=== PATIENT | male | born 1985 | race Caucasian/White ===

== ENCOUNTER 2019-08-24 13:56 | Emergency (ER) | payer BC ==
[2019-08-24] MEDS ORDERED: BABY ASPIRIN 81 MG CHEW PO ONE (14:01)
[2019-08-24] MEDS ORDERED: BABY ASPIRIN 81 MG CHEW ONE (14:20)
--- NOTE | 2019-08-24 14:22 | ERPHSYRPT ---
- History of Present Illness Time Seen by Provider: 08/24/19 14:00 Historian: patient Exam Limitations: no limitations Patient Subjective Stated Complaint: chest pain that feels like tightness. "it started while i was walking. Danni been sweating ever since." Triage Nursing Assessment: . Physician History: Patient is a 33-year-old male who presents to our ED with complaints of substernal chest pain and shortness of breath. 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 Chest pain described as an ache that is substernal. No radiation. Pain was associated with diaphoresis. No dizziness or lightheadedness. No nausea or vomiting. Patient has had similar symptoms before. He was diagnosed with anxiety. Patient also has a history of asthma. Patient states symptoms are different from his asthma. He denies wheezing. Patient voices no other complaints at this time. Timing/Duration: today Activities at Onset: activity Quality: aching Location: substernal Chest Pain Radiation: no radiation Severity of Pain-Max: moderate Severity of Pain-Current: mild Modifying Factors: Improves With: nothing Associated Symptoms: denies symptoms, diaphoresis Nitro Today/Relief: no nitro taken today Aspirin Treatment Today: no aspirin today, 325 mg x 1 Allergies/Adverse Reactions: No Known Drug Allergies Allergy (Unverified 08/24/19 14:14) Hx Tetanus, Diphtheria Vaccination/Date Given: Yes Hx Influenza Vaccination/Date Given: Yes Immunizations Up to Date: Yes Travel Risk - International Travel Have you traveled outside of the country in past 3 weeks: No Have you or anyone close to you been diagnosed with or: No Do your reside in a community with a known COVID-19 case?: Yes If Yes where:: [facility] - Coronavirus Screening Has patient experienced Coronavirus symptoms: No - Review of Systems Constitutional: No Symptoms, No Fever, No Chills Eyes: No Symptoms Ears, Nose, & Throat: No Symptoms Respiratory: No Symptoms, No Cough, No Dyspnea Cardiac: No Symptoms, No Chest Pain, No Edema, No Syncope Abdominal/Gastrointestinal: No Symptoms, No Abdominal Pain, No Nausea, No Vomiting, No Diarrhea Genitourinary Symptoms: No Symptoms, No Dysuria Musculoskeletal: No Symptoms, No Back Pain, No Neck Pain Skin: No Symptoms, No Rash Neurological: No Symptoms, No Dizziness, No Focal Weakness, No Sensory Changes Psychological: No Symptoms Endocrine: No Symptoms Hematologic/Lymphatic: No Symptoms All Other Systems: Reviewed and Negative - Social History Smoking Status: Never smoker Exposure to second hand smoke: No Patient Lives Alone: Yes (fiance) - Nursing Vital Signs Nursing Vital Signs: Initial Vital Signs Temperature 98.2 F 08/24/19 13:56 Pulse Rate 83 08/24/19 13:56 Respiratory Rate 22 08/24/19 13:56 Blood Pressure 132/80 08/24/19 13:56 O2 Sat by Pulse Oximetry 95 08/24/19 13:56 Pain Scale Pain Intensity 4 - Physical Exam General Appearance: no apparent distress, alert Eye Exam: PERRL/EOMI, eyes nml inspection Ears, Nose, Throat Exam: normal ENT inspection, moist mucous membranes Neck Exam: normal inspection, non-tender, supple, full range of motion Respiratory Exam: normal breath sounds, lungs clear, No respiratory distress Cardiovascular Exam: regular rate/rhythm, normal heart sounds Gastrointestinal/Abdomen Exam: soft, No tenderness, No mass Back Exam: normal inspection, No CVA tenderness, No vertebral tenderness Extremity Exam: normal inspection, normal range of motion Neurologic Exam: alert, oriented x 3, cooperative, normal mood/affect, sensation nml, No motor deficits Skin Exam: normal color, warm, dry SpO2 Interpretation: normal SpO2: 98 O2 Delivery: Room Air - Course Nursing assessment & vital signs reviewed: Yes EKG Interpreted by Me: RATE, Sinus Rhythm, NORMAL AXIS, NORMAL INTERVALS Ordered Tests: Active Orders 24 hr Category Date Time Status Title Closer STAT Care 08/24/19 14:01 Active EKG-ER Only STAT Care 08/24/19 14:01 Active IV Insertion STAT Care 08/24/19 14:01 Active Pulse Oximetry (ED) STAT Care 08/24/19 14:01 Active CHEST 1 VIEW (PORTABLE) Stat Exams 08/24/19 14:01 Completed CBC W DIFF Stat Lab 08/24/19 14:05 Completed CK-Creatinine Phosphokinase Stat Lab 08/24/19 14:05 Completed CMP Stat Lab 08/24/19 14:05 Completed D-DIMER QUANTITATIVE Stat Lab 08/24/19 14:05 Completed NT PRO BNP Stat Lab 08/24/19 14:05 Completed TROPONIN Q3H Lab 08/24/19 14:05 Completed TROPONIN Q3H Lab 08/24/19 17:03 Completed TROPONIN Q3H Lab 08/24/19 20:15 Ordered TROPONIN Q3H Lab 08/24/19 23:15 Ordered TROPONIN Q3H Lab 08/25/19 02:15 Ordered Urine Triage Profile Stat Lab 08/24/19 14:01 Completed Medication Summary Discontinued Medications Generic Name Dose Route Start Last Admin Trade Name Freq PRN Reason Stop Dose Admin Aspirin 324 mg 08/24/19 14:01 08/24/19 14:22 Baby Aspirin 81 Mg Chew PO 08/24/19 14:02 324 mg STAT ONE Administration Aspirin Confirm 08/24/19 14:20 Baby Aspirin 81 Mg Chew Administered 08/24/19 14:21 Dose 324 mg .ROUTE .STK-MED ONE Sodium Chloride 1,000 mls @ 999 mls/hr 08/24/19 16:56 08/24/19 18:21 Sodium Chloride 0.9% 1000 Ml IV 08/24/19 17:56 Infused .Q1H1M STA Infusion Sodium Chloride Confirm 08/24/19 17:03 Sodium Chloride 0.9% 1000 Ml Administered 08/24/19 17:04 Dose 1,000 mls @ ud .ROUTE .STK-MED ONE Lab/Rad Data: Laboratory Result Diagrams 08/24/19 14:05 08/24/19 14:05 Laboratory Results 08/24/19 08/24/19 08/24/19 Range/Units 17:03 14:05 14:05 WBC (4.0-10.5) K/mm3 RBC (4.1-5.6) M/mm3 Hgb (12.5-18.0) gm/dl Hct (42-50) % MCV (78-100) fl MCH (26-32) pg MCHC (32-36) g/dl RDW (11.5-14.0) % Plt Count (150-450) K/mm3 MPV (7.5-11.0) fl Gran % (36.0-66.0) % Eos # (Auto) (0-0.5) Absolute Lymphs (auto) (1.0-4.6) Absolute Monos (auto) (0.0-1.3) Lymphocytes % (24.0-44.0) % Monocytes % (0.0-12.0) % Eosinophils % (0.00-5.0) % Basophils % (0.0-0.4) % Absolute Granulocytes (1.4-6.9) Basophils # (0-0.4) D-Dimer < 215 L (215-500) ng/mL Sodium (137-145) mmol/L Potassium (3.5-5.1) mmol/L Chloride (98-107) mmol/L Carbon Dioxide (22-30) mmol/L Anion Gap (5-15) MEQ/L BUN (9-20) mg/dL Creatinine (0.66-1.25) mg/dL Estimated GFR ML/MIN Glucose (74-106) mg/dL Calcium (8.4-10.2) mg/dL Total Bilirubin (0.2-1.3) mg/dL AST (17-59) U/L ALT (0-50) U/L Alkaline Phosphatase (38-126) U/L Creatine Kinase (55-170) U/L Troponin I < 0.012 < 0.012 (0.000-0.034) ng/mL NT-Pro-B Natriuret Pep (0-450) pg/mL Serum Total Protein (6.3-8.2) g/dL Albumin (3.5-5.0) g/dL Urine Opiates Level (NEGATIVE) Ur Methadone (NEGATIVE) Urine Barbiturates (NEGATIVE) Ur Phencyclidine (PCP) (NEGATIVE) Urine Amphetamine (NEGATIVE) U Benzodiazepine Level (NEGATIVE) Urine Cocaine (NEGATIVE) Urine Marijuana (THC) (NEGATIVE) 08/24/19 08/24/19 08/24/19 Range/Units 14:05 14:05 14:01 WBC 8.4 (4.0-10.5) K/mm3 RBC 4.77 (4.1-5.6) M/mm3 Hgb 14.4 (12.5-18.0) gm/dl Hct 42.8 (42-50) % MCV 89.7 (78-100) fl MCH 30.2 (26-32) pg MCHC 33.6 (32-36) g/dl RDW 13.3 (11.5-14.0) % Plt Count 263 (150-450) K/mm3 MPV 10.9 (7.5-11.0) fl Gran % 66.0 (36.0-66.0) % Eos # (Auto) 0.20 (0-0.5) Absolute Lymphs (auto) 1.93 (1.0-4.6) Absolute Monos (auto) 0.66 (0.0-1.3) Lymphocytes % 23.1 L (24.0-44.0) % Monocytes % 7.9 (0.0-12.0) % Eosinophils % 2.4 (0.00-5.0) % Basophils % 0.6 (0.0-0.4) % Absolute Granulocytes 5.51 (1.4-6.9) Basophils # 0.05 (0-0.4) D-Dimer (215-500) ng/mL Sodium 141 (137-145) mmol/L Potassium 3.4 L (3.5-5.1) mmol/L Chloride 105 (98-107) mmol/L Carbon Dioxide 25 (22-30) mmol/L Anion Gap 15.6 H (5-15) MEQ/L BUN 17 (9-20) mg/dL Creatinine 1.09 (0.66-1.25) mg/dL Estimated GFR > 60.0 ML/MIN Glucose 93 (74-106) mg/dL Calcium 10.0 (8.4-10.2) mg/dL Total Bilirubin 0.50 (0.2-1.3) mg/dL AST 80 H (17-59) U/L ALT 174 H (0-50) U/L Alkaline Phosphatase 71 (38-126) U/L Creatine Kinase 271 H (55-170) U/L Troponin I (0.000-0.034) ng/mL NT-Pro-B Natriuret Pep 64.8 (0-450) pg/mL Serum Total Protein 8.5 H (6.3-8.2) g/dL Albumin 4.9 (3.5-5.0) g/dL Urine Opiates Level NEGATIVE (NEGATIVE) Ur Methadone NEGATIVE (NEGATIVE) Urine Barbiturates NEGATIVE (NEGATIVE) Ur Phencyclidine (PCP) NEGATIVE (NEGATIVE) Urine Amphetamine NEGATIVE (NEGATIVE) U Benzodiazepine Level NEGATIVE (NEGATIVE) Urine Cocaine NEGATIVE (NEGATIVE) Urine Marijuana (THC) NEGATIVE (NEGATIVE) - Progress Progress: improved Air Movement: good Progress Note: 08/24/19 18:44 Patient reassessed. Chest pain resolved. Troponin negative x2. D-dimer negative. No indication for further work-up in our ED. Patient follow-up with primary care doctor for further work-up and evaluation as indicated. Blood Culture(s) Obtained: No Antibiotics given: No Counseled pt/family regarding: lab results, diagnosis, need for follow-up, rad results - Departure Departure Disposition: Home Clinical Impression: Chest pain Condition: Good Critical Care Time: No Referrals: DOCTOR,NO FAMILY [Primary Care Provider] - GLORIA NATION MD [ACTIVE STAFF] - Additional Instructions: Discharge/Care Plan EMERALD MOONEY was seen on 08/24/19 in the Emergency Room. The patient was counseled regarding Diagnosis,Lab results, Imaging studies, need for follow up and when to return to the Emergency Room. Prescriptions given: Discharge Note I have spoken with the patient and/or caregivers. I have explained the patient' s condition, diagnosis and treatment plan based on the information available to me at this time. I have answered the patient's and/or caregiver's questions and addressed any concerns. The patient and/or caregivers have as good understanding of the patient's diagnosis, condition and treatment plan as can be expected at this point. The vital signs have been stable. The patient's condition is stable and appropriate for discharge from the emergency department. The patient will pursue further outpatient evaluation with the primary care physician or other designated or consulting physician as outlined in the discharge instructions. The patient and/or caregivers are agreeable to this plan of care and follow-up instructions have been explained in detail. The patient and/or caregivers have received these instruction. The patient/and or caregivers are aware that any significant change in condition or worsening of symptoms should prompt an immediate return to this or the closest emergency department or call 911.
[2019-08-24 14:26] LABS: Absolute Neutrophil Ct (ANC) 5.51 (1.4-6.9); BASOPHIL % 0.6 % (0.0-0.4); Basophil (Absolute #) 0.05 (0-0.4); Eosinophil % 2.4 % (0.00-5.0); Hematocrit 42.8 % (42-50); Hemoglobin 14.4 gm/dl (12.5-18.0); Lymphocyte (Absolute #) 1.93 (1.0-4.6); Lymphocytes % 23.1 % (24.0-44.0); Mean Cell Volume 89.7 fl (78-100); Mean Corpuscular Hemoglobin 30.2 pg (26-32); Mean Corpuscular Hgb Concent. 33.6 g/dl (32-36); Mean Platelet Volume 10.9 fl (7.5-11.0); Monocyte (Absolute #) 0.66 (0.0-1.3); Monocytes % 7.9 % (0.0-12.0); Platelet Count 263 K/mm3 (150-450); Red Blood Count 4.77 M/mm3 (4.1-5.6); Red Cell Distribution Width 13.3 % (11.5-14.0); White Blood Count 8.4 K/mm3 (4.0-10.5)
--- NOTE | 2019-08-24 14:27 | XRAY ---
Indication: Chest pain and short of breath. Comparison: None Portable chest demonstrates normal heart, lungs, and bony thorax.
[2019-08-24 14:52] LABS: ALBUMIN 4.9 g/dL (3.5-5.0); ALKALINE PHOSPHATASE 71 U/L (38-126); ANION GAP 15.6 MEQ/L (5-15); BLOOD UREA NITROGEN 17 mg/dL (9-20); CHLORIDE 105 mmol/L (98-107); CK-Creatinine Phosphokinase 271 U/L (55-170); Carbon Dioxide 25 mmol/L (22-30); Creatinine 1 1.09 mg/dL (0.66-1.25); Glucose 93 mg/dL (74-106); NT PRO BNP 64.8 pg/mL (0-450); Potassium 3.4 mmol/L (3.5-5.1); SGOT/AST 80 U/L (17-59); SGPT/ALT 174 U/L (0-50); SODIUM 141 mmol/L (137-145); Total Protein 8.5 g/dL (6.3-8.2)
[2019-08-24 15:30] LABS: Amphetamine,Urine NEGATIVE (NEGATIVE); Barbiturate,Urine NEGATIVE (NEGATIVE); Benzodiazepine,Urine NEGATIVE (NEGATIVE); Cocaine,Urine NEGATIVE (NEGATIVE); Methadone,Urine NEGATIVE (NEGATIVE); Opiate,Urine NEGATIVE (NEGATIVE); PCP,Urine NEGATIVE (NEGATIVE); THC,Urine NEGATIVE (NEGATIVE)
[2019-08-24] MEDS ORDERED: Sodium Chloride 0.9% 1000 ML 1,000 ML IV STA (16:56)
[2019-08-24] MEDS ORDERED: Sodium Chloride 0.9% 1000 ML 1,000 ML ONE (17:03)
[2019-08-24 17:16] VITALS: BP 129/71
[2019-08-24 18:45] VITALS: O2SAT 98
[2019-08-24 19:11] VITALS: PULSE 67
== END 2019-08-24 19:12 | disposition home or self-care (01) ==
LOC: ED 13:56
DX: R07.89 Other chest pain (principal)
CPT/HCPCS: 36000; 36415; 71045; 80053; 80307; 82550; 83880; 84484; 85025; 85379; 93005; 93041; 94760; 96360; 99284; A9270-GY

== ENCOUNTER 2021-11-22 16:13 | Emergency (ER) | payer BC, OTHER ==
--- NOTE | 2021-11-22 16:15 | ERPHSYRPT ---
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 He began having some shortness of breath and dizziness, nausea and tingling of both his hands. EMS was called and the patient was brought into the emergency department. Most of his symptoms resolved by the time he arrived to the emergency department. He does not have any chest pain. He has no abdominal pain. He did not hit his head today. He did not have loss of consciousness. Patient has a history of hypertension, elevated cholesterol, anxiety and asthma. Timing/Duration: today Associated Symptoms: nausea, shortness of breath, weakness, other (Dizziness) Allergies/Adverse Reactions: No Known Drug Allergies Allergy (Verified 11/22/21 16:21) Home Medications: Aspirin 81 gm Chew [Baby Aspirin 81 mg Chew] 81 mg PO DAILY 11/22/21 [History] Atorvastatin Calcium [Lipitor] 20 mg PO DAILY 11/22/21 [History] Citalopram Hydrobromide 20 mg* [ceLEXa 20 MG] 20 mg PO DAILY 11/22/21 [History] Docusate Sodium [Stool Softener] 50 mg PO DAILY 11/22/21 [History] Losartan/Hydrochlorothiazide [Losartan-Hctz 100-12.5 mg Tab] 1 each PO DAILY 11/22/21 [History] Prazosin HCl [Minipress] 2 mg PO DAILY 11/22/21 [History] Hx Tetanus, Diphtheria Vaccination/Date Given: Yes Hx Influenza Vaccination/Date Given: Yes Travel Risk - International Travel Have you traveled outside of the country in past 3 weeks: No - Coronavirus Screening Are you exhibiting any of the following symptoms?: No Close contact with a COVID-19 positive Pt in past 14-21 Days: No - Review of Systems Constitutional: Weakness Eyes: No Symptoms Ears, Nose, & Throat: No Symptoms Respiratory: No Symptoms Cardiac: No Symptoms Abdominal/Gastrointestinal: Nausea Genitourinary Symptoms: No Symptoms Musculoskeletal: No Symptoms Neurological: Dizziness, Headache Psychological: No Symptoms Endocrine: No Symptoms Hematologic/Lymphatic: No Symptoms Immunological/Allergic: No Symptoms All Other Systems: Reviewed and Negative - Past Medical History Cardiac History: Hypertension - Social History Smoking Status: Never smoker Exposure to second hand smoke: No Drug Use: none Patient Lives Alone: Yes (fiance) - Nursing Vital Signs Nursing Vital Signs: Initial Vital Signs Temperature 99.4 F 11/22/21 16:25 Pulse Rate 88 11/22/21 16:25 Respiratory Rate 18 11/22/21 16:25 Blood Pressure 141/78 11/22/21 16:25 O2 Sat by Pulse Oximetry 93 L 11/22/21 16:25 Pain Scale Pain Intensity 0 - Physical Exam General Appearance: no apparent distress, alert, anxiety Eye Exam: PERRL/EOMI, eyes nml inspection Ears, Nose, Throat Exam: normal ENT inspection, moist mucous membranes Neck Exam: normal inspection, non-tender, supple, full range of motion Respiratory Exam: normal breath sounds, lungs clear, airway intact, No chest tenderness, No respiratory distress Cardiovascular Exam: regular rate/rhythm, normal heart sounds, normal peripheral pulses Gastrointestinal/Abdomen Exam: soft, normal bowel sounds, No tenderness Rectal Exam: not done Back Exam: normal inspection, normal range of motion, No CVA tenderness, No clem tebral tenderness Extremity Exam: normal inspection, normal range of motion, pelvis stable Neurologic Exam: alert, oriented x 3, cooperative, counselor at law II-XII nml as tested, normal mood/affect, nml cerebellar function, nml station & gait, sensation nml Skin Exam: normal color, warm, dry Lymphatic Exam: No adenopathy SpO2 Interpretation: normal O2 Delivery: Room Air - Course Nursing assessment & vital signs reviewed: Yes Ordered Tests: Active Orders 24 hr Category Date Time Status Clean Catch Urine Specimen STAT Care 11/22/21 16:28 Active EKG-ER Only STAT Care 11/22/21 16:28 Active IV Insertion STAT Care 11/22/21 16:28 Active Pulse Oximetry (ED) STAT Care 11/22/21 16:28 Active CHEST 1 VIEW (PORTABLE) Stat Exams 11/22/21 16:40 Taken HEAD WITHOUT CONTRAST [CT] Stat Exams 11/22/21 16:28 Taken CBC W DIFF Stat Lab 11/22/21 16:50 Completed CMP Stat Lab 11/22/21 16:50 Completed CULTURE,URINE Stat Lab 11/22/21 18:25 Received ETHYL ALCOHOL Stat Lab 11/22/21 16:50 Completed TROPONIN Q4HX3 Lab 11/22/21 16:50 Completed UA W/RFX CULTURE Stat Lab 11/22/21 18:25 Completed Urine Triage Profile Stat Lab 11/22/21 18:25 Ordered Medication Summary Generic Name Dose Route Start Last Admin Trade Name Daniel PRN Reason Stop Dose Admin Cephalexin HCl 500 mg 11/22/21 18:46 Cephalexin Mh500 Mg Capsule PO 11/22/21 18:47 STAT ONE Discontinued Medications Generic Name Dose Route Start Last Admin Trade Name Freq PRN Reason Stop Dose Admin Sodium Chloride 1,000 mls @ 999 mls/hr 11/22/21 16:28 11/22/21 17:40 Sodium Chloride 0.9% 1000 Ml IV 11/22/21 17:28 Infused .Q1H1M STA Infusion Sodium Chloride Confirm 11/22/21 16:37 Sodium Chloride 0.9% 1000 Ml Administered 11/22/21 16:38 Dose 1,000 mls @ ud .ROUTE .K-MED ONE Lab/Rad Data: Laboratory Result Diagrams 11/22/21 16:50 11/22/21 16:50 Laboratory Results 11/22/21 11/22/21 11/22/21 Range/Units 18:25 16:50 16:50 WBC (4.0-10.5) x10^3/uL RBC (4.1-5.6) x10^6/uL Hgb (12.5-18.0) g/dL Hct (42-50) % MCV (78-100) fL MCH (26-32) pg MCHC (32-36) g/dL RDW (11.5-14.0) % Plt Count (150-450) x10^3/uL MPV (7.5-11.0) fL Gran % (36.0-66.0) % Immature Gran % (Auto) (0.00-0.4) % Nucleat RBC Rel Count (0.00-0.1) % Eos # (Auto) (0-0.5) x10^3/uL Immature Gran # (Auto) (0.00-0.03) x10^3u/L Absolute Lymphs (auto) (1.0-4.6) x10^3/uL Absolute Monos (auto) (0.0-1.3) x10^3/uL Absolute Nucleated RBC (0.00-0.01) x10^3u/L Lymphocytes % (24.0-44.0) % Monocytes % (0.0-12.0) % Eosinophils % (0.00-5.0) % Basophils % (0.0-0.4) % Absolute Granulocytes (1.4-6.9) x10^3/uL Basophils # (0-0.4) x10^3/uL Sodium 137 (137-145) mmol/L Potassium 3.5 (3.5-5.1) mmol/L Chloride 100 (98-107) mmol/L Carbon Dioxide 23 (22-30) mmol/L Anion Gap 17.1 H (5-15) MEQ/L BUN 18 (9-20) mg/dL Creatinine 1.32 H (0.66-1.25) mg/dL Estimated GFR > 60.0 ML/MIN Glucose 95 (74-106) mg/dL Calcium 10.0 (8.4-10.2) mg/dL Total Bilirubin 0.80 (0.2-1.3) mg/dL AST 67 H (17-59) U/L ALT 161 H (0-50) U/L Alkaline Phosphatase 78 (38-126) U/L Troponin I 0.017 (0.000-0.034) ng/mL Serum Total Protein 7.8 (6.3-8.2) g/dL Albumin 4.9 (3.5-5.0) g/dL Urinalys Dipstick Clnc MAIN LAB Urine Color YELLOW (YELLOW) Urine Appearance CLEAR (CLEAR) Urine pH 6.0 (5-6) Ur Specific [place] 1.025 (1.005-1.025) POC Urine Protein Conf NEGATIVE (Negative) Urine Ketones NEGATIVE (NEGATIVE) Urine Nitrite NEGATIVE (NEGATIVE) Urine Bilirubin NEGATIVE (NEGATIVE) Urine Urobilinogen 0.2 (0-1) mg/dL Urine Leukocytes TRACE (NEGATIVE) Urine WBC (Auto) 6-10 (0-5) /HPF Urine RBC (Auto) 6-10 (0-2) /HPF U Epithel Cells (Auto) RARE (FEW) /HPF Urine Bacteria (Auto) RARE (NEGATIVE) /HPF Urine RBC TRACE-INTACT (0-5) Robert/ul Urine Mucus (Auto) SLIGHT (NEGATIVE) /HPF Ur Culture Indicated? YES Urine Glucose NEGATIVE (NEGATIVE) mg/dL Ethyl Alcohol < 10 (0-10) mg/dL 11/22/21 Range/Units 16:50 WBC 9.8 (4.0-10.5) x10^3/uL RBC 4.80 (4.1-5.6) x10^6/uL Hgb 14.3 (12.5-18.0) g/dL Hct 41.6 L (42-50) % MCV 86.7 (78-100) fL MCH 29.8 (26-32) pg MCHC 34.4 (32-36) g/dL RDW 12.9 (11.5-14.0) % Plt Count 272 (150-450) x10^3/uL MPV 10.8 (7.5-11.0) fL Gran % 73.3 H (36.0-66.0) % Immature Gran % (Auto) 0.5 H (0.00-0.4) % Nucleat RBC Rel Count 0.0 (0.00-0.1) % Eos # (Auto) 0.04 (0-0.5) x10^3/uL Immature Gran # (Auto) 0.05 H (0.00-0.03) x10^3u/L Absolute Lymphs (auto) 1.67 (1.0-4.6) x10^3/uL Absolute Monos (auto) 0.79 (0.0-1.3) x10^3/uL Absolute Nucleated RBC 0.00 (0.00-0.01) x10^3u/L Lymphocytes % 17.0 L (24.0-44.0) % Monocytes % 8.0 (0.0-12.0) % Eosinophils % 0.4 (0.00-5.0) % Basophils % 0.8 (0.0-0.4) % Absolute Granulocytes 7.21 H (1.4-6.9) x10^3/uL Basophils # 0.08 (0-0.4) x10^3/uL Sodium (137-145) mmol/L Potassium (3.5-5.1) mmol/L Chloride (98-107) mmol/L Carbon Dioxide (22-30) mmol/L Anion Gap (5-15) MEQ/L BUN (9-20) mg/dL Creatinine (0.66-1.25) mg/dL Estimated GFR ML/MIN Glucose (74-106) mg/dL Calcium (8.4-10.2) mg/dL Total Bilirubin (0.2-1.3) mg/dL AST (17-59) U/L ALT (0-50) U/L Alkaline Phosphatase (38-126) U/L Troponin I (0.000-0.034) ng/mL Serum Total Protein (6.3-8.2) g/dL Albumin (3.5-5.0) g/dL Urinalys Dipstick Clnc Urine Color (YELLOW) Urine Appearance (CLEAR) Urine pH (5-6) Ur Specific [place] (1.005-1.025) POC Urine Protein Conf (Negative) Urine Ketones (NEGATIVE) Urine Nitrite (NEGATIVE) Urine Bilirubin (NEGATIVE) Urine Urobilinogen (0-1) mg/dL Urine Leukocytes (NEGATIVE) Urine WBC (Auto) (0-5) /HPF Urine RBC (Auto) (0-2) /HPF U Epithel Cells (Auto) (FEW) /HPF Urine Bacteria (Auto) (NEGATIVE) /HPF Urine RBC (0-5) Robert/ul Urine Mucus (Auto) (NEGATIVE) /HPF Ur Culture Indicated? Urine Glucose (NEGATIVE) mg/dL Ethyl Alcohol (0-10) mg/dL - Departure Departure Disposition: Home Clinical Impression: UTI (urinary tract infection) Condition: Stable Critical Care Time: No Additional Instructions: Drink plenty of fluids. Avoid exposure to heat for the next 24 hours. Take your antibiotics as prescribed. Forms: Work/School Release Form Prescriptions: Cephalexin Mh 500 mg [Keflex 500 mg] 500 mg PO TID #21 cap
[2021-11-22] MEDS ORDERED: Sodium Chloride 0.9% 1000 ML 1,000 ML IV STA (16:28)
[2021-11-22] MEDS ORDERED: Sodium Chloride 0.9% 1000 ML 1,000 ML ONE (16:37)
[2021-11-22 16:53] LABS: Absolute Neutrophil Ct (ANC) 7.21 x10^3/uL (1.4-6.9); Basophil (Absolute #) 0.08 x10^3/uL (0-0.4); Eosinophil % 0.4 % (0.00-5.0); Eosinophil (Absolute #) 0.04 x10^3/uL (0-0.5); Hematocrit 41.6 % (42-50); Hemoglobin 14.3 g/dL (12.5-18.0); Lymphocyte (Absolute #) 1.67 x10^3/uL (1.0-4.6); Mean Cell Volume 86.7 fL (78-100); Mean Corpuscular Hemoglobin 29.8 pg (26-32); Mean Corpuscular Hgb Concent. 34.4 g/dL (32-36); Mean Platelet Volume 10.8 fL (7.5-11.0); Monocyte (Absolute #) 0.79 x10^3/uL (0.0-1.3); Neutrophil % 73.3 % (36.0-66.0); Platelet Count 272 x10^3/uL (150-450); Red Cell Distribution Width 12.9 % (11.5-14.0); White Blood Count 9.8 x10^3/uL (4.0-10.5)
[2021-11-22 17:14] LABS: ALBUMIN 4.9 g/dL (3.5-5.0); ALKALINE PHOSPHATASE 78 U/L (38-126); ANION GAP 17.1 MEQ/L (5-15); BLOOD UREA NITROGEN 18 mg/dL (9-20); CHLORIDE 100 mmol/L (98-107); Carbon Dioxide 23 mmol/L (22-30); Creatinine 1 1.32 mg/dL (0.66-1.25); EST GLOMERULAR FILTRATION RATE > 60.0 ML/MIN; ETHYL ALCOHOL < 10 mg/dL (0-10); Glucose 95 mg/dL (74-106); Potassium 3.5 mmol/L (3.5-5.1); SGOT/AST 67 U/L (17-59); SGPT/ALT 161 U/L (0-50); SODIUM 137 mmol/L (137-145); Total Protein 7.8 g/dL (6.3-8.2)
[2021-11-22 18:20] VITALS: O2SAT 96
[2021-11-22 18:34] LABS: Bacteria RARE /HPF (NEGATIVE); Epithelial Cells RARE /HPF (FEW); Mucus SLIGHT /HPF (NEGATIVE)
[2021-11-22 18:40] LABS: Appearance CLEAR (CLEAR); Bilirubin NEGATIVE (NEGATIVE); Glucose NEGATIVE (NEGATIVE); Ketones NEGATIVE (NEGATIVE); RBC TRACE-INTACT Ery/ul (0-5); Specific Gravity 1.025 (1.005-1.025)
[2021-11-22 18:41] LABS: Nitrite NEGATIVE (NEGATIVE); Protein,Urine Dip NEGATIVE (Negative); Urine Cultured Indicated? YES; Urobilinogen 0.2 mg/dL (0-1)
[2021-11-22 18:42] LABS: INFLUENZA A NEGATIVE (NEGATIVE); INFLUENZA B NEGATIVE (NEGATIVE); RESPIRATORY SYNCTIAL VIRUS NEGATIVE (Negative); SARS-CoV-2 Xpert Express NEGATIVE (NEGATIVE)
[2021-11-22 18:42] LABS: Dipstick done @ ? MAIN LAB
[2021-11-22 18:46] LABS: Amphetamine,Urine NEGATIVE (NEGATIVE); Barbiturate,Urine NEGATIVE (NEGATIVE); Benzodiazepine,Urine NEGATIVE (NEGATIVE); Methadone,Urine NEGATIVE (NEGATIVE); Opiate,Urine NEGATIVE (NEGATIVE); PCP,Urine NEGATIVE (NEGATIVE); THC,Urine NEGATIVE (NEGATIVE)
[2021-11-22] MEDS ORDERED: KEFLEX 500 MG PO ONE (18:46)
[2021-11-22] MEDS ORDERED: KEFLEX 500 MG ONE (18:49)
[2021-11-22 18:54] VITALS: BP 126/85; PULSE 84
--- NOTE | 2021-11-23 07:03 | XRAY ---
Indication: Tingling and cramping in extremities 2 hours. Short of breath. Multiple contiguous axial images obtained through the head without contrast. Comparison: None Normal appearing brain parenchyma, ventricles, and bony calvarium for patient's age. Mild mucosal thickening floor of right maxillary sinus. Remaining visualized paranasal sinuses and mastoid air shows are clear. Impression: Normal CT head without contrast exam. Incidental right maxillary sinus disease. Comment: Preliminary interpretation made by [facility]. No critical discrepancy.
--- NOTE | 2021-11-23 14:32 | XRAY ---
Exam: AP upright portable chest film from 11/22/2021. Comparison: AP upright portable chest film from 08/24/2019. Indication: Shortness of breath; tingling and cramping of upper extremity for 2 hours. Findings: 3 AP upright portable chest films were obtained. The heart size and contour are normal. I note some granulomatous calcifications within the kayla, left greater than right. The lungs are well expanded. No air space infiltrates, vascular congestion, pneumothorax, or pleural fluid is seen. Slight convexity of the mid thoracic spine toward the right is seen. Mild lateral osteophyte formation is seen within the lower thoracic spine. Impression: 1. Old healed granulomatous disease. 2. No acute cardiopulmonary disease is seen.
== END 2021-11-22 19:06 | disposition home or self-care (01) ==
LOC: ED 16:13
DX: N39.0 Urinary tract infection, site not specified (principal); R42 Dizziness and giddiness; R06.02 Shortness of breath; R11.0 Nausea; R20.2 Paresthesia of skin; I10 Essential (primary) hypertension; E78.5 Hyperlipidemia, unspecified; Z79.899 Other long term (current) drug therapy
CPT/HCPCS: 0241U; 36000; 36415; 70450; 71045; 80053; 80307; 81015; 84484; 85025; 87086; 93005; 94760; 99284; A9270-GY; G0480